=== PATIENT | male | born 1980 | race African-American/Black ===

== ENCOUNTER 2017-02-23 17:41 | Emergency (ER) | payer OTHER ==
[~2017-02-23] VITALS: Ht 190.5 cm; Wt 103.6 kg
[2017-02-23] MEDS ORDERED: NORCO 5/3251 TABLET PO (18:40)
[2017-02-23] MEDS ORDERED: AMOXICILLIN875 MG PO (18:40)
[2017-02-23] MEDS ORDERED: MOTRIN800 MG PO (18:40)
[2017-02-23 18:55] VITALS: BP 157/70
== END 2017-02-23 18:55 | disposition home or self-care (01) ==
LOC: EME 17:41
DX: K08.89 Other specified disorders of teeth and supporting structures (principal); Z72.0 Tobacco use
CPT/HCPCS: 99281; 99283